=== PATIENT | male | born 1985 | race Caucasian/White ===

== ENCOUNTER 2020-02-18 10:21 | Outpatient (REF) | payer BC, SELFPAY ==
[2020-02-18 21:09] LABS: Calculated LDL 126 mg/dL (<100); Cholesterol 209 mg/dL (<200); Glucose 109 mg/dL (74-106); HDL Cholesterol 28 mg/dL (40-60); Triglyceride 277 mg/dL (<150)
== END 2020-02-18 10:41 ==
LOC: NCHCN 10:21
PROVIDERS: PCP Nurse Practitioner Family; Visit Provider Nurse Practitioner Family
DX: Z13.220 Encounter for screening for lipoid disorders (principal); E66.9 Obesity, unspecified
CPT/HCPCS: 80061; 82947

== ENCOUNTER 2022-07-26 11:08 | Outpatient (REF) | payer BC, SELFPAY ==
[2022-07-26 21:02] LABS: ALT 43 U/L (16-63); AST 23 U/L (15-37); Albumin 4.3 g/dL (3.4-5.0); Alkaline Phosphatase 76 U/L (46-116); Anion Gap 6.6 mmol/L (3-11); BUN 13 mg/dL (7-18); Bilirubin, Total 0.7 mg/dL (0.2-1.0); CO2 29.4 mmol/L (21.0-32.0); CREATININE 1.1 mg/dL (0.70-1.30); Calcium 9.6 mg/dL (8.5-10.1); Calculated LDL 176 mg/dL (<100); Chloride 105 mmol/L (98-107); Cholesterol 239 mg/dL (<200); Estimated GFR 90.34 (mL/min/1.73m2); Glucose 95 mg/dL (74-106); HDL Cholesterol 36 mg/dL (40-60); Potassium 4.3 mmol/L (3.5-5.1); Sodium 141 mmol/L (136-145); Triglyceride 139 mg/dL (<150)
== END 2022-07-26 11:09 | disposition home or self-care (01) ==
LOC: NCHCN 11:08
PROVIDERS: PCP Nurse Practitioner Family; Visit Provider Physician Assistant
DX: Z00.00 Encounter for general adult medical examination without abnormal findings (principal); E78.5 Hyperlipidemia, unspecified; R73.03 Prediabetes
CPT/HCPCS: 80053; 80061

== ENCOUNTER 2023-11-01 08:59 | Outpatient (REF) | payer BC, SELFPAY ==
--- OUTSIDE RECORDS SUMMARY | 2023-11-01 09:01 | XMS_ITS | Encounter Summary ---
Author Organization [facility] Address [facility] [place] [address] Care Team Providers Care Pourer Crane Ladle Name Role Phone Sammy Goodwin MD Primary Care Provider [phone] Reason for Visit * Reason Comments Left Elbow Pain DOS 06/11/2002 @[facility] Encounter Details Date Type Department Care Team (Late st Contact Info) Description 06/13/2013 2:00 PM EST Office [place] [address] Raza Dietrich MD [facility] [place] [address] Pain in left elbow Discharge Disposition: Home Social History Tobacco Use Types Packs/Day Years Used Date Smoking Tobacco: Never Alcohol Use Standard Drinks/Week Comments Yes 0 (1 standard drink = 0.6 oz pur e alcohol) Socially only Sex and Gender Information Value Date Recorded Sex Assigned at Not on file Gender Identity Not on file Sexual Orientation Not on file documented as of this encounter Last Filed Vital Signs Vital Sign Reading Time Taken Comments Blood Pressure 123/75 06/13/2013 1:28 PM EST Pulse 64 06/13/2013 1:28 PM EST Temperature - - Respiratory Rate - - Oxygen Saturation - - Inhaled Oxygen Concentration - - Weight 99.3 kg (219 lb) 06/13/2013 1:28 PM EST Height 177.8 cm (5' 10) 06/13/2013 1:28 PM EST Body Mass Index 31.42 06/13/2013 1:28 PM EST documented in this encounter Progress Notes * Raza Dietrich MD - 06/24/2013 1:20 PM EDT Attending addendum: The preceeding portion of this note was written by Gita Dougherty PA-C. I personally saw and evaluated the patient as well and I agree with the assessment and plan documented above. Raza Dietrich M.D., M.S. Transport Assistant of Orthopaedic Surgery Shoulder, Elbow, and Sports Medicine Department of Orthopaedic Surgery [place] [phone] * Gita Dougherty PA - 06/13/2013 2:24 PM EST PATIENT NAME: Jared Flanagan AGE: 27 y.o. MR#: [id number] DATE OF VISIT: 06/13/2013 DATE OF INJURY/ONSET: Chronic STAFF: Dr. Raza Dietrich CHIEF COMPLAINT: Left elbow pain HISTORY OF PRESENT ILLNESS Mr. Flanagan a 27 y.o. year old male comes into clinic today for evaluation of left elbow pain. The patient states that he has had left elbow pain for many years. The patient had an arthroscopy which was in elbow debridement and removal of loose bodies at [facility] and 2002. Patient has had increasing elbow discomfort as well as locking and catching in the past year. Th e patient was seen in [place] orthopedist who obtained radiologic studies her shows severe osteoarthritic changes to the left elbow. The patient does not remember any specific injury, previous fractures, or has a history of rheumatoid arthritis or psoriatic arthritis. The patient locates the majority of his discomfort over the posterior medial aspect of the left elbow. The patient is most difficulty with lifting and forcefully bring his arm into extension. The patient describes the pain as a dull throb and can become quite severe with activity. The patient states the intensity of discomfort varies. Patient does not have any difficulty with sleep at night. The patient denies any radiation of discomfort. The patient occasionally has had new onset hand numbness over the last 3-4 months patient is unsure of which fingers actually go numb. Patient has not had a course of physical therapy or a corticosteroid injection. 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 PHYSICAL EXAM: Mr. Masha justin 27 y.o. year old is alert and oriented. He appears in no acute discomfort and is resting comfortably in a chair in the exam room. Inspection: On inspection of the patient's left elbow. The left elbow appears larger than the rightelbow with no evidence of fracture, dislocation, or effusions. Palpation: The patient did not have any significant tenderness to palpation. Patient's elbow flexion is 190??. The patient's elbow extension is 35?? measured with a goniometer.Patient has bilaterally equal supination and pronation. Patient's strength was 5/5 with elbow flexion, elbow extension, supination, and pronation. To his ulnar nerve is prominent within the medial cubital tunnel. Patient has a positive Tinel sign. Neurological: Patient sensation is intact in the ulnar, radial, and median nerve distributions. Thepatient's radial pulses are 2+ and symmetric RADIOLOGICAL STUDIES: Radiologic studies of the patient's left elbow shows severe osteoarthritic changes with multiple loose bodies as well as osteophyte formation on the radial head and olecranon. 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 Flanagan and I discussed his radiologic findings and physical exam findings. Dr. Dietrich alsohad an opportunity visiting with this patient. We discussed with the patient that he is extremely young to be having such severe osteoarthritic changes. We again asked patient If he had had any previous injuries or dislocations. Given that the patient's function is relatively good in his pain is tolerable at this time. It seems most appropriate to not intervene. We discussed with the patient possible interventions of corticosteroid injection, elbow arthroscopy, effusion, and total elbow replacem ent. We discussed with the patient that we did not think he was a good candidate at this time for total elbow replacement or a fusion. The fusion would significantly decrease his function. If the patient's pain continues to increase we would then suggest an intra-articular corticosteroid injection.We will plan to see the patient back on an as-needed basis. documented in this encounter Plan of Treatment Not on file documented as of this encounter Visit Diagnoses Diagnosis Pain in left elbow Pain in joint, upper arm documented in this encounter Care Teams Pourer Crane Ladle Relationship Specialty Start Date End Date Sammy Goodwin MD [address] [place] [id number] PCP - General 04/23/13 documented as of this encounter
--- OUTSIDE RECORDS SUMMARY | 2023-11-01 09:01 | XMS_ITS | Encounter Summary ---
[facility] [place] [address] Care Team Providers Care Drop Hammer Pile Driver Operator Name Role Phone Sammy Goodwin MD Primary Care Provider [phone] Encounter Details Date Type Department Care Team (Late st Contact Info) Description 04/14/2013 Orders [place] [address] Reji العلي MD [facility] [place] [address] Social History Tobacco Use Types Packs/Day Years Used Date Smoking Tobacco: Never Assessed Sex and Gender Information Value Date Recorded Sex Assigned at Not on file Gender Identity Not on file Sexual Orientation Not on file documented as of this encounter Plan of Treatment Pending Results Name Type Priority Associated Diagnoses Date /Time Film Library- Storage only DX Elbow Imaging Routine 04/14/2013 9:15 AM EST documented as of this encounter Visit Diagnoses Not on filedocumented in this encounter Care Teams Drop Hammer Pile Driver Operator Relationship Specialty Start Date End Date Sammy Goodwin MD [address] [place] [id number] PCP - General 04/23/13 documented as of this encounter
--- OUTSIDE RECORDS SUMMARY | 2023-11-01 09:01 | XMS_ITS | Encounter Summary ---
Author Organization [facility] [place] [address] Care Team Providers Care Alcoholic Counselor Name Role Phone Sammy Goodwin MD Primary Care Provider [phone] Encounter Details Date Type Department Care Team (Late st Contact Info) Description 05/02/2013 External Results XRay at [address] [place] [address] Provider, Scanning Social History Tobacco Use Types Packs/Day Years Used Date Smoking Tobacco: Never Assessed Sex and Gender Information Value Date Recorded Sex Assigned at Not on file Gender Identity Not on file Sexual Orientation Not on file documented as of this encounter Plan of Treatment Not on file documented as of this encounter Procedures Procedure Name Priority Date/Time Associated Diagnosis Comments DIAGNOSTIC RADIOLOGY SCAN Routine 04/14/2013 documented in this encounter Results * Scan Doc: Diagnostic Radiology (04/14/2013) Anatomical Region Laterality Modality Other Scanning Provider MEDIA MGR SCAN EXT O RDR/RSLT documented in this encounter Visit Diagnoses Not on filedocumented in this encounter Care Teams Alcoholic Counselor Relationship Specialty Start Date End Date Sammy Goodwin MD [address] [place] [id number] PCP - General 04/23/13 documented as of this encounter
--- OUTSIDE RECORDS SUMMARY | 2023-11-01 09:01 | XMS_ITS | Clinical Summary ---
[place] [address] Care Team Providers Care Factory Assembler Name Role Phone Sammy Goodwin MD Primary Care Provider [phone] Allergies No known active allergies Medications No known medications Active Problems Problem Noted Date Diagnosed Date Pain in left elbow 06/13/2013 Social History Tobacco Use Types Packs/Day Years Used Date Smoking Tobacco: Never Alcohol Use Standard Drinks/Week Comments Yes 0 (1 standard drink = 0.6 oz pur e alcohol) Socially only Sex and Gender Information Value Date Recorded Sex Assigned at Not on file Gender Identity Not on file Sexual Orientation Not on file Last Filed Vital Signs Vital Sign Reading [...] Mass Index 31.42 06/13/2013 1:28 PM EST Plan of Treatment Health Maintenance Due Date Last Done Comments HIV screen 12/22/2005 Hepatitis C Screening 12/22/2005 Lipid Screening 12/22/2005 Hepatitis B vaccine (0-59 yrs) (1) 12/22/2006 Tdap adult 12/22/2006 Tetanus vaccine 12/22/2006 Covid-19 Vaccine (1 - 2022-24 season) 2022 Influenza (Flu) vaccine (1 o f 1 - Influenza standard series) 12/09/2023 Care Teams Factory Assembler Relationship Specialty Start Date End Date Sammy Goodwin MD NPI: [id number] [place] [id number] PCP - General 04/23/13
--- OUTSIDE RECORDS SUMMARY | 2023-11-01 09:01 | XMS_ITS | Encounter Summary ---
Author Organization [facility] [place] [address] Care Team Providers Care Syruper Name Role Phone Sammy Goodwin MD Primary Care Provider [phone] Encounter Details Date Type Department Care Team (Late st Contact Info) Description 05/02/2013 Orders [place] [address] Raza Dietrich MD [facility] DR ORTHOPAEDIC SURGERY [place] [id number] Pain in left elbow (Primary Dx) Social History Tobacco Use Types Packs/Day Years Used Date Smoking Tobacco: Never Assessed Sex and Gender Information Value Date Recorded Sex Assigned at Not on file Gender Identity Not on file Sexual Orientation Not on file documented as of this encounter Plan of Treatment Not on file documented as of this encounter Visit Diagnoses Diagnosis Pain in left elbow- Primary Pain in joint, upper arm documented in this encounter Care Teams Syruper Relationship Specialty Start Date End Date Sammy Goodwin MD [address] [place] [id number] PCP - General 04/23/13 documented as of this encounter
--- OUTSIDE RECORDS SUMMARY | 2023-11-01 09:01 | XMS_ITS | Encounter Summary ---
Author Organization [facility] [place] [address] Care Team Providers Care Transport Operations Inspector Name Role Phone Sammy Goodwin MD Primary Care Provider [phone] Reason for Visit * Reason Onset Date Comments Referral 05/01/2013 L ELBOW Encounter Details Date Type Department Care Team (Late st Contact Info) Description 05/01/2013 [place] [id number] Alfreda Reis Referral (L ELBOW) Social History Tobacco Use Types Packs/Day Years Used Date Smoking Tobacco: Never Assessed Sex and Gender Information Value Date Recorded Sex Assigned at Not on file Gender Identity Not on file Sexual Orientation Not on file documented as of this encounter Miscellaneous Notes * Telephone Encounter - Alfreda Mao - 05/02/2013 10:56 AM EST Called patient to reschedule his appointment. I scheduled him with Dr. العلي instead of Dr. Dietrich,in error. I have rescheduled him in Dr. Dietrich's clinic at a similar time the Sunday of the week of his original appointment - the patient had requested an appointment that week due to being on school vacation. Requested a call back from Mr. Flanagan if this time was inconvenient for him and he would like to reschedule, or if he had any questions. * Telephone Encounter - Alfreda Mao - 05/02/2013 10:41 AM EST IMAGES AND REPORTS RECEIVED FROM [facility] * Telephone Encounter - Alfreda Mao - 05/01/2013 10:17 AM EST Ask patient to verify the following: Full name: Jared Flanagan : 1985 Phone number: [phone] (home) Mailing address: [address] [address] Intake: L ELBOW LOCKING/PAIN - S/P SCOPE Is this an injury that happened: NO ?? At work? ?? Playing a sport? ?? If yes to either, what is DOI? Tell me how this how long you've had these symptoms? PAIN FOR 10 YEARS Has anyone ever seen you before for this issue? YES Have you tried: ?? Physical Therapy NO - HAD NO PT AFTER SURGERY ?? INJECTION NO ?? Other therapies NO Have you had any of the following studies for this issue? ?? X-Ray YES - [facility] IN [place], [place] (RECENT) ?? MRI ?? CT Scan ?? LABS Have you seen an Orthopaedic surgeon for the this issue? YES If YES: Who did you see? DR. MONACO Where were you seen (facility)? [facility] When? ONE TIME A FEW WEEKS AG Phone # Fax# Have you ever had surgery for this issue? YES If YES and different than above: Who performed surgery? FA - SCOPE 8-10 YEARS AGO - IT WAS LOCKING UP. THEY TOOK OUT PIECES OF BONE. Where did you have the surgery (facility)? [facility] When? 2002? Phone # Fax# If patient is implanted with hardware fixation or joint prosthesis retrieve OPERATIVE REPORT and IMPLANT STICKERS. documented in this encounter Plan of Treatment Not on file documented as of this encounter Visit Diagnoses Not on filedocumented in this encounter Care Teams Transport Operations Inspector Relationship Specialty Start Date End Date Sammy Goodwin MD [address] [place] [id number] PCP - General 04/23/13 documented as of this encounter
[2023-11-01 19:02] LABS: ALT 36 U/L (16-63); AST 18 U/L (15-37); Albumin 4.6 g/dL (3.4-5.0); Alkaline Phosphatase 71 U/L (46-116); Anion Gap 6.4 mmol/L (3-11); BUN 13 mg/dL (7-18); Bilirubin, Total 0.89 mg/dL (0.2-1.0); CO2 29.6 mmol/L (21.0-32.0); CREATININE 1.1 mg/dL (0.70-1.30); Calcium 9.5 mg/dL (8.5-10.1); Calculated LDL 163 mg/dL (<100); Chloride 104 mmol/L (98-107); Cholesterol 223 mg/dL (<200); Estimated GFR 89.78 (mL/min/1.73m2); Glucose 102 mg/dL (74-106); HDL Cholesterol 35 mg/dL (40-60); Potassium 4.6 mmol/L (3.5-5.1); Sodium 140 mmol/L (136-145); Total Protein 7.5 g/dL (6.4-8.2); Triglyceride 128 mg/dL (<150)
[2023-11-03 09:49] LABS: HIV-1/2 Ag & Ab Screen Negative (Negative)
[2023-11-05 12:20] LABS: Hepatitis C Ab w Rflx HCV PCR Negative (Negative)
== END 2023-11-01 09:00 | disposition home or self-care (01) ==
LOC: NCHCN 08:59
PROVIDERS: PCP Nurse Practitioner Family; Visit Provider Physician Assistant
DX: E78.5 Hyperlipidemia, unspecified (principal); Z11.4 Encounter for screening for human immunodeficiency virus [HIV]; Z11.59 Encounter for screening for other viral diseases
CPT/HCPCS: 80053; 80061; 86803; 87389

== ENCOUNTER 2024-11-04 12:43 | Outpatient (REF) | payer BC, SELFPAY ==
[2024-11-04 21:03] LABS: ALT 42 U/L (16-63); AST 26 U/L (15-37); Albumin 4.4 g/dL (3.4-5.0); Alkaline Phosphatase 68 U/L (46-116); Anion Gap 9.4 mmol/L (3-11); BUN 13 mg/dL (7-18); Bilirubin, Total 1.0 mg/dL (0.2-1.0); CO2 26.6 mmol/L (21.0-32.0); Calcium 9.4 mg/dL (8.5-10.1); Chloride 102 mmol/L (98-107); Estimated GFR 100.03 (mL/min/1.73m2); Glucose 89 mg/dL (74-106); Potassium 4.2 mmol/L (3.5-5.1); Sodium 138 mmol/L (136-145); Total Protein 7.6 g/dL (6.4-8.2)
== END 2024-11-04 12:44 | disposition home or self-care (01) ==
LOC: NCHCN 12:43
PROVIDERS: PCP Nurse Practitioner Family; Visit Provider Physician Assistant
DX: E78.5 Hyperlipidemia, unspecified (principal)
CPT/HCPCS: 80053

== ENCOUNTER 2024-12-12 19:19 | Outpatient (REF) | payer BC, SELFPAY ==
[2024-12-12 19:46] LABS: Calculated LDL 157 mg/dL (<100); Cholesterol 205 mg/dL (<200); HDL Cholesterol 28 mg/dL (>or=40); Triglyceride 100 mg/dL (<150)
== END 2024-12-12 19:20 | disposition home or self-care (01) ==
LOC: NCHCN 19:19
PROVIDERS: PCP Nurse Practitioner Family; Visit Provider Physician Assistant
DX: E78.1 Pure hyperglyceridemia (principal); E78.5 Hyperlipidemia, unspecified
CPT/HCPCS: 80061